=== PATIENT | male | born 1985 | race Caucasian/White ===

== ENCOUNTER 2021-10-31 14:03 | Outpatient (REF) | payer OTHER, SELFPAY ==
[2021-10-31 14:59] LABS: MANUAL DIFF FLAG NO
[2021-10-31 15:11] LABS: Basophils Percent Auto 0.3 % (0-2); Eosinophils Absolute Auto 0.2 X10*3/uL (0.0-0.4); Eosinophils Percent Auto 2.2 % (0-4); Hematocrit 42.8 % (42.0-52.0); Imm Gran Abs Auto 0.02 X10*3/uL (0.00-0.03); Imm Gran Pct Auto 0.2 % (0.0-0.4); Lymphocytes Absolute Auto 1.7 X10*3/uL (1.2-4.9); Lymphocytes Percent Auto 18.4 % (20-40); Mean Corpuscular HGB Conc 32.7 g/dl (31.0-36.0); Mean Corpuscular Hemoglobin 29.1 pg (27.0-33.0); Mean Platelet Volume 9.2 fL (9.4-12.4); Monocytes Absolute Auto 0.7 X10*3/uL (0.1-1.2); Monocytes Percent Auto 7.7 % (2-11); Neutrophils Absolute Auto 6.7 x10*3/uL (2.0-8.3); Neutrophils Percent Auto 71.2 % (45-73); Platelet Count 302 X10*3/uL (160-400); Red Blood Count 4.81 X10*6/uL (4.60-5.80); White Blood Count 9.4 X10*3/uL (4.8-10.8)
[2021-10-31 15:38] LABS: Alanine Aminotransferase 18 U/L (0-40); Albumin Level 4.5 g/dL (3.5-5.0); Alkaline Phosphatase 71 U/L (39-117); Anion Gap 15 (12-20); Aspartate Amino Transferase 16 U/L (5-37); Bilirubin Total 0.6 mg/dL (0.0-1.0); Blood Urea Nitrogen 10 mg/dL (9-16); Calcium 9.9 mg/dL (8.4-10.2); Carbon Dioxide 27 mmol/L (22-29); Chloride 103 mmol/L (96-108); Estimated Glomerular Filt Rate > 60; Glucose Random 88 mg/dL (60-115); Potassium 4.8 mmol/L (3.3-5.1); Sodium 140 mmol/L (135-145); Total Protein 7.6 g/dL (6.5-8.0)
[2021-10-31 16:14] LABS: Erythrocyte Sedimentation Rate 6 MM/HR (0-15)
[2021-11-02 15:11] LABS: TS Negative Control Passed; TS Panel A 0; TS Panel B 0; TS Positive Control Passed; TSpotTB Negative (Negative)
[2021-11-03 04:30] LABS: HBc Num1 0.15 S/CO (0.00-0.79); HBsAGNum1 0.26 S/CO (0.00-0.99); HIV AB/AG Nonreactive (Nonreactive); HIV Num 1 0.08 S/CO (0.00-0.99); Hepatitis B Core Antibody Nonreactive (Nonreactive); Hepatitis B Surface Antigen Negative (Negative)
[2021-11-03 04:35] LABS: ~HepC Num1 0.11 S/CO (0.00-0.79); ~Hepatitis C Antibody Nonreactive (Nonreactive)
[2021-11-03 16:56] LABS: Anti Nuclear Antibody Screen NEGATIVE (NEGATIVE)
== END 2021-10-31 14:04 | disposition home or self-care (01) ==
LOC: HO.HMGCLDS 14:03
PROVIDERS: Visit Provider Nurse Practitioner Family
DX: Z01.84 Encounter for antibody response examination (principal); Z11.4 Encounter for screening for human immunodeficiency virus [HIV]; Z79.899 Other long term (current) drug therapy
CPT/HCPCS: 36415; 80053; 85025; 85652; 86038; 86039; 86481; 86704; 86803; 87340; 87389

== ENCOUNTER 2022-12-09 10:22 | Outpatient (REF) | payer OTHER, SELFPAY ==
[2022-12-09 11:29] LABS: MANUAL DIFF FLAG NO
[2022-12-09 11:57] LABS: Basophils Percent Auto 0.6 % (0-2); Eosinophils Absolute Auto 0.3 X10*3/uL (0.0-0.4); Eosinophils Percent Auto 4.8 % (0-4); Hematocrit 43.6 % (42.0-52.0); Hemoglobin 14.5 g/dl (14.0-18.0); Imm Gran Abs Auto 0.01 X10*3/uL (0.00-0.03); Imm Gran Pct Auto 0.2 % (0.0-0.4); Lymphocytes Absolute Auto 1.9 X10*3/uL (1.2-4.9); Lymphocytes Percent Auto 30.7 % (20-40); Mean Corpuscular HGB Conc 33.3 g/dl (31.0-36.0); Mean Corpuscular Hemoglobin 30.1 pg (27.0-33.0); Mean Corpuscular Volume 90.5 fL (80.0-98.0); Mean Platelet Volume 10.2 fL (9.4-12.4); Monocytes Absolute Auto 0.5 X10*3/uL (0.1-1.2); Monocytes Percent Auto 8.2 % (2-11); Neutrophils Absolute Auto 3.5 x10*3/uL (2.0-8.3); Neutrophils Percent Auto 55.5 % (45-73); Platelet Count 259 X10*3/uL (160-400); Red Blood Count 4.82 X10*6/uL (4.60-5.80); Red Cell Distribution Width 12.4 % (11.0-16.0); White Blood Count 6.2 X10*3/uL (4.8-10.8)
[2022-12-09 13:24] LABS: Alanine Aminotransferase 34 U/L (0-40); Albumin Level 4.6 g/dL (3.5-5.0); Alkaline Phosphatase 61 U/L (39-117); Anion Gap 14 (12-20); Aspartate Amino Transferase 26 U/L (5-37); Bilirubin Total 0.6 mg/dL (0.0-1.0); Blood Urea Nitrogen 12 mg/dL (9-16); Calcium 9.2 mg/dL (8.4-10.2); Carbon Dioxide 28 mmol/L (22-29); Chloride 104 mmol/L (96-108); Estimated Glomerular Filt Rate > 60; Glucose Random 87 mg/dL (60-115); Potassium 4.7 mmol/L (3.3-5.1); Sodium 141 mmol/L (135-145)
[2022-12-09 13:47] LABS: Total Protein 7.5 g/dL (6.5-8.0)
[2022-12-12 05:29] LABS: TS Negative Control Passed; TS Panel A 2; TS Panel B 0; TS Positive Control Passed; TSpotTB Negative (Negative)
== END 2022-12-09 10:23 | disposition home or self-care (01) ==
LOC: HO.HMGCLDS 10:22
PROVIDERS: PCP Nurse Practitioner Family; Visit Provider Nurse Practitioner Family
DX: L40.0 Psoriasis vulgaris (principal)
CPT/HCPCS: 36415; 80053; 85025; 86481

== ENCOUNTER 2024-05-08 08:16 | Outpatient (REF) | payer OTHER, SELFPAY ==
[2024-05-08 10:19] LABS: MANUAL DIFF FLAG NO
[2024-05-08 10:32] LABS: Basophils Percent Auto 0.5 % (0-2); Eosinophils Absolute Auto 0.2 X10*3/uL (0.0-0.4); Eosinophils Percent Auto 3.6 % (0-4); Hematocrit 45.1 % (42.0-52.0); Hemoglobin 15.4 g/dl (14.0-18.0); Imm Gran Abs Auto 0.01 X10*3/uL (0.00-0.03); Imm Gran Pct Auto 0.2 % (0.0-0.4); Lymphocytes Percent Auto 35.7 % (20-40); Mean Corpuscular HGB Conc 34.1 g/dl (31.0-36.0); Mean Corpuscular Volume 90.7 fL (80.0-98.0); Mean Platelet Volume 10.3 fL (9.4-12.4); Monocytes Absolute Auto 0.5 X10*3/uL (0.1-1.2); Monocytes Percent Auto 8.2 % (2-11); Neutrophils Absolute Auto 2.9 x10*3/uL (2.0-8.3); Neutrophils Percent Auto 51.8 % (45-73); Platelet Count 239 X10*3/uL (160-400); Red Blood Count 4.97 X10*6/uL (4.60-5.80); Red Cell Distribution Width 12.3 % (11.0-16.0); White Blood Count 5.6 X10*3/uL (4.8-10.8)
[2024-05-08 10:47] LABS: Alanine Aminotransferase 36 U/L (0-40); Albumin Level 4.6 g/dL (3.5-5.0); Alkaline Phosphatase 53 U/L (39-117); Anion Gap 16 (12-20); Aspartate Amino Transferase 25 U/L (5-37); Bilirubin Total 0.5 mg/dL (0.0-1.0); Blood Urea Nitrogen 13 mg/dL (9-16); Calcium 9.7 mg/dL (8.4-10.2); Carbon Dioxide 27 mmol/L (22-29); Chloride 103 mmol/L (96-108); Estimated Glomerular Filt Rate > 60; Glucose Random 90 mg/dL (60-115); Potassium 4.5 mmol/L (3.3-5.1); Sodium 141 mmol/L (135-145); Total Protein 7.5 g/dL (6.5-8.0)
[2024-05-10 23:49] LABS: TS Negative Control Passed; TS Panel A 0; TS Panel B 2; TS Positive Control Passed; TSpotTB Negative (Negative)
== END 2024-05-08 08:17 | disposition home or self-care (01) ==
LOC: HO.HMGCLDS 08:16
PROVIDERS: PCP Nurse Practitioner Family; Visit Provider Nurse Practitioner Family
DX: L40.0 Psoriasis vulgaris (principal)
CPT/HCPCS: 36415; 80053; 85025; 86481

== ENCOUNTER 2025-10-11 14:49 | Outpatient (REF) | payer OTHER, SELFPAY ==
[2025-10-11 16:19] LABS: MANUAL DIFF FLAG NO
[2025-10-11 16:25] LABS: Hematocrit 43.0 % (42.0-52.0); Hemoglobin 14.8 g/dl (14.0-18.0); Imm Gran Abs Auto 0.00 X10*3/uL (0.00-0.03); Imm Gran Pct Auto 0.0 % (0.0-0.4); Lymphocytes Absolute Auto 1.6 X10*3/uL (1.2-4.9); Mean Corpuscular HGB Conc 34.4 g/dl (31.0-36.0); Mean Corpuscular Hemoglobin 30.8 pg (27.0-33.0); Mean Corpuscular Volume 89.6 fL (80.0-98.0); NRBC Abs Auto 0.000 X10*3/uL (0.0-0.012); NRBC Pct Auto 0.0 /100WBC (0.0-0.2); Platelet Count 219 X10*3/uL (160-400); Red Blood Count 4.80 X10*6/uL (4.60-5.80); White Blood Count 4.7 X10*3/uL (4.8-10.8)
[2025-10-11 16:47] LABS: Alanine Aminotransferase 63 U/L (0-40); Albumin Level 4.7 g/dL (3.5-5.0); Alkaline Phosphatase 64 U/L (39-117); Anion Gap 12 (12-20); Aspartate Amino Transferase 46 U/L (5-37); Blood Urea Nitrogen 17 mg/dL (9-16); Calcium 9.0 mg/dL (8.4-10.2); Carbon Dioxide 26 mmol/L (22-29); Chloride 107 mmol/L (96-108); Estimated Glomerular Filt Rate > 60; Potassium 4.2 mmol/L (3.3-5.1); Sodium 141 mmol/L (135-145); Total Protein 7.3 g/dL (6.5-8.0)
--- OUTSIDE RECORDS SUMMARY | 2025-10-11 18:05 | XMS_ITS | Clinical Summary ---
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 3 Active therapeutic multivitamin tablet Take 1 tablet by mouth daily. Active Immunizations Immunization Administration Dates Next Due DTP 03/29/1993, 9,02/28/1988,1987,1987 Hepatitis B 02/18/2001,08/20/2000,07/20/2000 Hib,HbOC 04/29/1989 MMR 07/30/1998,12/30/1988 Polio - OPV 03/29/1993, 9,01/28/1988,1986 Td (adult),2 Lf Tetanus Toxo id, PF, Adsorbed 07/20/2000 Tdap 01/09/2022 Social History Tobacco Use Types Packs/Day Years Used Date Smoking Tobacco: Never Smokeless Tobacco: Never Tobacco Cessation:Counseling Given: Not Answered Education Answer Date Recorded Are you interested in more education? Not on deirdre e 03/27/2023 Are you concerned about learning? Not on file 03/27/2023 No 03/27/2023 No 03/27/2023 Digital Access Answer Date Recorded No 04/25/2023 No 04/25/2023 No 04/25/2023 Reliable internet access at home? Not on file 04/25/2023 Device with a working camera? Not on file Sex and Gender Information Value Date Recorded Sex Assigned at Not on file Legal Sex Male 5:11 PM EST Gender Identity Not on file Sexual Orientation Not on file Last Filed Vital Signs Vital Sign Reading Time Taken Comments Blood Pressure 130/90 01/19/2023 8:03 AM EST Pulse 98 01/19/2023 8:03 AM EST Temperature 36.6 C (97.8 F) 01/19/2023 8:03 AM EST Respiratory Rate - - Oxygen Saturation 95% 01/19/2023 8:03 AM EST Inhaled Oxygen Concentration - - Weight 95.7 kg (211 lb) 01/19/2023 8:03 AM EST Height 175.3 cm (5' 9 ) 01/19/2023 8:03 AM EST Body Mass Index 31.16 01/19/2023 8:03 AM EST Plan of Treatment Health Maintenance Due Date Last Done Comments LIPID PANEL 1987 DEPRESSION SCREENING 1999 HEPATITIS C SCREENING 2005 HIV ONE-TIME SCREENING (18-65 YEARS) 2005 SCREENING FOR DIABETES 2022 INFLUENZA VACCINE (#1) 2025 COVID-19 VACCINE ( season) 2025 Adult Td,Tdap Booster 01/09/2032 01/09/2022, 000 HIB VACCINES Completed 04/29/1989 IPV VACCINES Completed 03/29/1993, 0611/1988, 01/28/1988, Additional history exists SMOKING STATUS SCREENING (Once After 26 Yrs) Completed 01/19/2023 HEPATITIS A VACCINES Aged Out No long er eligible based on patient's age to complete this topic MENINGOCOCCAL VACCINES (ACWY) Aged Out No longer eligible based on patient's age to complete this topic MENINGOCOCCAL VACCINES (B) Aged Out N o longer eligible based on patient's age to complete this topic PNEUMOCOCCAL VACCINES (0-49 years) Aged Out No longer eligible based on patient's age to complete this topic Medical Devices Not on file [place] [address] [address] CHOICE PLUS [facility] CHOICE PLUS [place] [employer] CHOICE PLUS [place] [employer] CHOICE PLUS Member Subscriber Plan / Payer (Ef fective 2022-Present) Name:Bernard Meza Relation to Subscriber:Self Name:Bernard Meza Payer ID:[id number] (NAIC) Type:PPO Address: [place] [id number] [place] [employer] CHOICE PLUS [place] [employer] CHOICE PLUS 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 It is not the complete legal health record.[facility]
--- OUTSIDE RECORDS SUMMARY | 2025-10-11 18:05 | XMS_ITS | Data Portability ---
Author Organization [place] - [facility], [facility] Address [address] [place] [address] Care Team Providers Care Intermediate Designer Name Role Phone BARRERA ARAUJO Primary Care Provider [phone] Assessment No assessment recorded. Plan of Treatment Reminders Order Date Submit Date Provider Last Modified By Organization Details Last Modified Time Details Appointments None recorded. Lab None recorded. Referral physical therapist referral - right lateral epicondylit is 2023 024 [email or web address] [id number] Not available 4 11:23:17 Procedures nerve conduction study/EMG, upper extremity (PROC) - right upper extremity pain eval CTS 2023 024 [email or web address] [facility] Scheduling, [address] [place], [address], 4 16:44:03 Surgeries None recorded. Imaging XR, lumbar spine, 2 view - 305 2V LUMBAR SPINE 2024 025 [email or web address] [facility], [address], [address], [place], [address], 5 12:08:52 MRI, lumbar spine, w/o contrast - L-SPINE MRI - EVAL STENOSIS 2024 025 [facility]), [address], [place], [address], 5 16:47:19 XR, elbow, 3 or more view - room 102 3v elbow 2023 024 [email or web address] [facility], [address], [address], [place], [address], 4 16:44:03 MRI, elbow, w/o contrast - right elbow pain -- eval joint and tendon 2023 024 HAR[facility], [address], [address], [place], [address], 4 09:53:38 Medication Orders meloxicam 15 mg tablet 2024 025 [id number], [address] [facility] [place], [address], 5 14:40:13 Patient TargetsNo targets recorded. Patient InstructionsNo instructions recorded. Reason for Referral Physical Therapist Referral for Right lateral elbow tendinopathy right lateral epicondylitis Referring Physician: Kathy Becerra, Orthopedic Surgery, [id number] Encounter Date: 10/31/2024 Results Created Date Observation Date Name Description Value Unit Range Abnormal Flag Note LastModifiedBy Organization Detail LastModifiedTime 09/27/2009/27/2024 XR, elbow , 3 or more view [email or web address]:/ [email or web address] ?Encry pted=s hAaTro YD8dLq bEUv6g %2BXZw aYqtaq 0bqfl% 2Fg9IQ a4ajBk vP9nXo QUaueC m3YtLR FvZlgJ JJ8mAn HZtai3 3o0859 AC0Kqa H6HUaS vKiQtr MwF INTERFACE [facility] [address], [place], [address], 09/27/2024 09:08:32 09/27/20 24 09/27/2024 XR, elbow , 3 or more view http:/ [email or web address] ?Encry pted=s hAaTro YD8dLq bEUv6g %2BXZw aYqtaq 0bqfl% 2Fg9IQ a4ajBk vP9nXo QUaueC m3YtLR FvZl[address] HZtai3 8s4400 AC0Kqa H6HUaS vKiQtr MwF INTERFACE [facility] Office [address] [facility] [address], [place], [address], 09/27/2024 09:08:34 10/22/20 24 10/21/2024 MRI, elbow , w/o contr ast No observ ation record ed. [email or web address] [facility] [address] [facility] [address], [place], [address], 10/25/2024 08:50:40 10/22/2010/21/2024 MRI, elbow , w/o contr ast No observ ation record ed. HARMONY [facility] [address] [facility] [address], [place], [address], 10/25/2024 08:50:36 06/25/2006/25/2025 XR, lumba r spine , 2 view http:/ [email or web address] ?Encry pted=s hAaTro YD8dLq bEUv6g %2BXZw aYqtaq 0bqfl% 2Fg9IQ a4ajBk vP9nXo QUaueC m3YtLR FvZlgJ JJ8Mehoopany HZtai3 0i8051 AC0Klb n%2BAW aegKiQ trMwF INTERFACE [facility] [address] [facility] [address], [place], [address], 06/25/2025 08:59:03 06/25/20 25 06/25/2025 XR, lumba r spine , 2 view http:/ [email or web address] ?Encry pted=s hAaTro YD8dLq bEUv6g %2BXZw aYqtaq 0bqfl% 2Fg9IQ a4ajBk vP9nXo QUaueC m3YtLR FvZl JJ8Mehoopany HZtai3 8k8226 AC0Klb n%2BAW aegKiQ trMwF INTERFACE [facility] Office [address] [facility] [address], [place], [address], 06/25/2025 08:59:04 07/02/20 25 06/28/2025 MRI, lumba r spine , w/o contr ast [facility] Access ion Number : [id number] Patien t Name: Bernard Carnes Record Number : [id number] Date of : 1984 Date of Exam: 2024 Referr ing Physic carlito: [facility] [address] [facility] , [address] [place] [address] Exam: MR Lumbar Spine (C-) CPT 62742 Room Descri ption: Rosamond GE Pion 3T MR Lumbar Spine (C-) CPT 44654 INDICA TION: Low back pain, unspec ified, , L-SPIN E MRI - EVAL STENOS IS TECHNI QUE: Multip lanar, multis equenc e MRI of the lumbar spine was perfor med withou t intrav enous contra st. COMPAR JUSTIN: None. FINDIN GS: NUMBER ING: The study assume s 5 non-ri b-bear ing lumbar type verteb ral bodies . ALIGNM ENT, VERTEB ALVARO, MARROW , AND DISCS: Alignm ent is normal . Verteb ral body height s are preser lalit. Modic 2 endpla te change s are presen t at L5-S1. Mild Modic 1 endpla te change s are in the anteri or superi or endpla te of L5. No suspic ious marrow lesion s are seen. Severa l small Schmor l's nodes are presen t. There is disc desicc ation and modera te loss of disc space at L5-S1, and mild loss of disc at T11-12 and T12-L1 . CONUS: The conus is normal in signal and contou r, with normal level of termin ation at L1-2. A fatty filum is visual ized below this level extend ing to the sacrum . PARASP INAL TISSUE S: The parasp inal soft tissue s are unrema rkable . DETAIL ED FINDIN GS BY LEVEL: T11-T1 2: Broad- based disc bulge with mild centra l stenos is, as assess ed in the sagitt al plane. Mild left and no signif icant right neural forami nal narrow ing. T12-L1 : Left parace ntral/ forami nal protru anshul with annula r fissur e. Mild left-s ided centra l stenos is. Mild left and no right neural forami nal narrow ing. L1-L2: No signif icant disc hernia tion, centra l stenos is, or neural forami nal narrow ing. L2-L3: No signif icant disc hernia tion, centra l stenos is, or neural forami nal narrow ing. L3-L4: Mild broad- based disc bulge with no signif icant centra l stenos is. Minima l right and no left neural forami nal narrow ing. L4-L5: No signif icant disc hernia tion, centra l stenos is, or neural forami nal narrow ing. L5-S1: Broad- based disc osteop hyte comple x with centra l protru anshul. Mild narrow ing of the subart icular recess es on each side. Otherw ise no signif icant centra l stenos is. Mild to modera te right and mild left neural forami nal narrow ing. IMPRES ANSHUL: Degene rative change s of the lumbar spine as detail ed above, greate st at L5-S1. Electr onical ly Signed By: Jv Portillo MD [address] [place] [address] [facility]) [address], [place], [address], 07/04/2025 13:45:00 Result Notes Documentation Provider Name and Address Organization Details Recorded Time Xr, Elbow, 3 Or More View : [email or web address]? Encrypted=alSlTopPC7nOepY Uv6g%8OCVdpPgvss0mecd%2Fg 5ZTk6uxTjeX0oGgLCwxvMt5Zn MCMnKypVLR6mFfOGpja55x815 1CO2SeeS5DDxHdEoAchXzA Not Available [facility] 09/27/2024 09:08:33 Xr, Elbow, 3 Or More View : [email or web address] Encrypted=ejAxObgUQ1pOcvO Uv6g%5BIZbjXjcat0qegx%2Fg 0BEi2niMxoR0pWyHSlhbSd0Iw FNIsGubGQQ6eEwKZxmx84r235 6ZL8DqkR0MDcShNyYjhSiF Not Available [facility] 09/27/2024 09:08:34 Xr, Lumbar Spine, 2 View : [email or web address] Encrypted=zrUeCfcAX4eRifU Uv6g%3PRPxfEnvms2rosa%2Fg 7DPl1otNxwD3kZaMSlczDm3Iw VFLaRqpOUJ9iXzNGpaw08c966 8PV4Lmna%2BAWaegKiQtrMwF Not Available [facility] 06/25/2025 08:59:03 Xr, Lumbar Spine, 2 View : [email or web address] Encrypted=xvErLmaXO8rXgrL Uv6g%2BPRwqEvroh5hsbh%2Fg 3JGj2lxDytP1fOzXHmtxBi2Uk JJLdQizJBF9qLpJRfqj39c888 9QO9Fnja%2BAWaegKiQtrMwF Not Available [facility] 06/25/2025 08:59:05 Mri, Lumbar Spine, W/o Contrast : [facility] Accession Number: [id number] Patient Name: Bernard Meza Date of : 1985 Date of Exam: 06-28-2025 Referring Physician: Jelena Stanford [facility] ([facility]) [address] [place] [address], [address] [place] [address] Exam: MR Lumbar Spine (C-) CPT 31925 Room Description: [facility] 3T MR Lumbar Spine (C-) CPT 04998 INDICATION: Low back pain, unspecified, , L-SPINE MRI - EVAL STENOSIS TECHNIQUE: Multiplanar, multisequence MRI of the lumbar spine was performed without intravenous contrast. COMPARISON: None. FINDINGS: NUMBERING: The study assumes 5 cwf-goy-hlfskjl lumbar type vertebral bodies. ALIGNMENT, VERTEBRAE, MARROW, AND DISCS: Alignment is normal. Vertebral body heights are preserved. Modic 2 endplate changes are present at L5-S1. Mild Modic 1 endplate changes are in the anterior superior endplate of L5. No suspicious marrow lesions are seen. Several small Schmorl's nodes are present. There is disc desiccation and moderate loss of disc space at L5-S1, and mild loss of disc at T11-12 and T12-L1. CONUS: The conus is normal in signal and contour, with normal level of termination at L1-2. A fatty filum is visualized below this level extending to the sacrum. PARASPINAL TISSUES: The paraspinal soft tissues are unremarkable. DETAILED FINDINGS BY LEVEL: T11-T12: Broad-based disc bulge with mild central stenosis, as assessed in the sagittal plane. Mild left and no significant right neural foraminal narrowing. T12-L1: Left paracentral/foraminal protrusion with annular fissure. Mild left-sided central stenosis. Mild left and no right neural foraminal narrowing. L1-L2: No significant disc herniation, central stenosis, or neural foraminal narrowing. L2-L3: No significant disc herniation, central stenosis, or neural foraminal narrowing. L3-L4: Mild broad-based disc bulge with no significant central stenosis. Minimal right and no left neural foraminal narrowing. L4-L5: No significant disc herniation, central stenosis, or neural foraminal narrowing. L5-S1: Broad-based disc osteophyte complex with central protrusion. Mild narrowing of the subarticular recesses on each side. Otherwise no significant central stenosis. Mild to moderate right and mild left neural foraminal narrowing. IMPRESSION: Degenerative changes of the lumbar spine as detailed above, greatest at L5-S1. Electronically Signed By: Tawny Stanford PA-C [address] [facility] [address] [facility], [place], [address], [facility] - [place] [facility] 07/04/2025 13:45:00 Problems Name Problem SNOMED Code Status Onset Date Resolution Date Notes Provider Name and Address Organization Details Recorded Time No complaints 793681201 Active Status : 'I'; Not Available [facility] 4 09:14:24 Low back pain 857292562 Active 2024 RYLIE BERNAL [facility] 5 08:52:30 Problem Notes None recorded. Procedures Surgical History Date Name Laterality Status Provider Name and Address Organization Details Recorded Time 3 Hand Surgery completed Lolis hernandez [facility] 10/31/2024 09:33:08 9 Hand Surgery completed Lolis hernandez [facility] 10/31/2024 09:33:08 Imaging Results None recorded. Procedure Notes None recorded. Medical Equipment None Reported. Allergies Allergen ID Allergen Name Allergen Category Reaction Reaction Severity Criticality Documentation Date Start Date Code Code System Note Provider Name and Address Organization Details Recorded Time 031404 ethinyl estradiol / levonorge strel medicatio n other moderate Not available 09/27/20241986 58006 8 RxNorm Brooklynn maria [facility] 4 08:53:03 Medications Name Sig Start Date Stop Date Status Note LastModified by Organization Details LastModified Time quetiapine 25 mg tablet TAKE 1 TABLET BY MOUTH EVERYDAY AT BEDTIME active Not Available Not Available No t Available meloxicam 15 mg tablet TAKE 1 TABLET EVERY DAY BY ORAL ROUTE AFTER MEAL(S). 2024 active Not Available Not Available Not Avai lable clobetasol 0.05 % topical cream APPLY TWICE DAILY TO PSORIASIS X2 WEEKS ON, 1 WEEK OFF, NEEDED. NOT FOR FACE OR BODY FOLDS. 06/25 completed Not Available Not Available Not Available quetiapine 100 mg tablet TAKE 1 TABLET BY MOUTH AT BEDTIME. active Not Available Not Available No t Available lamotrigine 25 mg tablet TAKE 2 TABLETS BY MOUTH EVERY MORNING active Not Available Not Available No t Available benzonatate 100 mg capsule TAKE 1 CAPSULE BY MOUTH THREE TIMES A DAY NEEDED FOR COUGH active Not Available Not Available No t Available fluoxetine 20 mg capsule TAKE 1 CAPSULE BY MOUTH EVERY MORNING. active Not Available Not Available No t Available fluticasone propionate 50 mcg/actuati on nasal spray,suspe nsion SPRAY 1 SPRAY INTO EACH NOSTRIL EVERY DAY 06/25 completed Not Available Not Available Not Available clobetasol propionate (bulk) 06/25 completed Not Available Not Available Not Available quetiapine 50 mg tablet TAKE 1 TABLET BY MOUTH EVERYDAY AT BEDTIME active Not Available Not Available No t Available Tremfya 100 mg/mL subcutaneou s auto-inject or Inject 100 mg every 2 months by sub-q route. 06/25 completed Not Available Not Available Not Available COVID-19 At-Home Test kit FOLLOW INSTRUCTI ONS INCLUDED WITH THE PACKAGE. 06/25 completed Not Available Not Available Not Available Vitals Date Recorded Body height Body mass index (BMI) Body weight Provider Name and Address Organization Details Last Updated DateTime 06/25/2025 175.26 cm 30.1 kg/m2 61102.84 g RYLIE BERNAL [facility] 06/25/2025 08:53:38 Date Recorded Body height Body mass index (BMI) Body weight Provider Name and Address Organization Details Last Updated DateTime 09/27/2024 175.26 cm 30.1 kg/m2 07665.84 g Brooklynn maria [facility] 09/27/2024 09:10:41 Date Recorded Body height Body mass index (BMI) Body weight Provider Name and Address Organization Details Last Updated DateTime 10/31/2024 175.26 cm 30.1 kg/m2 11473.84 g Lolis hernandez [facility] 10/31/2024 09:33:17 Social History Question Answer Notes LastModified by [employer] Details LastModified Time Tobacco Smoking Status [facility] 10/31/2024 09:33:08 What Is Your Relationship Status? Domestic Partner [email or web address] Information not available 10/31/2024 How Many Years Have You Smoked Tobacco? 0 Information not available 10/31/2024 Sex: Unknown Functional Status Question Answer Note LastModified by [employer] Details LastModified Time How many times per week do you consume alcohol? 3-4 times per week Information not available 10/31/2024 Do you use any illicit or recreational drugs? No [email or web address] Information not available 10/31/2024 Do you or have you ever used any other forms of tobacco or nicotine? No [email or web address] Information not available 10/31/2024 Do you or have you ever used e-cigarettes or vape? Never used electronic cigarettes [email or web address] Information not available 10/31/2024 Mental Status None recorded. Family History Nothing Reported. Medical History Condition Response Allergies/Hayfever Y Autoimmune disease Y Arthritis Y Past Encounters Encounter ID Performer Location Encounter Start Date Encounter Closed Date Diagnosis/Indication Diagnosis SNOMED-CT Code Diagnosis ICD10 Code Diagnosis IMO Codes Diagnosis Note [id number] Hortencia Curiel PA-C [facility] [address] [place] [address] 09/27/2024 08:41:17 10/19/2024 12:48:49 Pain of elbow region 13090188 M25.521 [id number] Kathy brown PA-C [facility] [address] [place] [address] 10/31/2024 09:24:30 11/16/2024 14:51:24 Right lateral elbow tendinopathy 9058806730 92170 M77.11 [id number] Traumatic arthropathy-elbow 709819777 M19.217 [id number] Jelena Stanford PA-C [facility] [address] [place] [address] 06/25/2025 08:48:58 06/29/2025 12:08:52 Low back pain 473675419 M54.50 46643 Health Concerns Section Related Observation LastModified by Organization Detai ls LastModified Time None Recorded Concern Status LastModified by Organization Details LastModified Time None Recorded Advance Directives Directive None Recorded Payers Insurance Date Sequence Insurance Name Policy Number Policy Lucia Covered Member ID Lucia Member ID Guarantor Name 08/17/2025 1 [facility] [id number] Bernard Meza [id number] Bernard Meza Notes Date Note Type Note Provider Name and Address Organization Details Recorded Time 09/27/2024 text/html I am seeing this patient under the supervision of Dr. Vicente who was available but who did not see the patient. HPI: Patient is a 38-year-old male presenting to the office today for evaluation of right elbow pain. Reports he dislocated his elbow 10 years ago. Reports it was a very bad injury and he had to go to physical therapy for a long time before he regained his motion. Reports since then he has had some pain in the elbow. Reports around 4-6 months ago he decided to go back to weight lifting, and things were going well but then he tried to carry a vacuum and felt a pop in his elbow. Reports he had pain and swelling in the elbow afterwards and some restriction in range of motion but this has since improved with compression sleeves, icing, and time. Reports he still gets soreness in the elbow. Also reports numbness and tingling in the ulnar aspect of the hand including the ring and small finger which is worse at night. denies feelings of elbow instability. He is here today for orthopedic consultation. Past family, medical, social history and review of systems has been reviewed, updated and is located in the patient's chart. Examination: The patient is well appearing and in no apparent distress. Alert and oriented x 3. Nonantalgic gait. Right elbow reveals minimal soft tissue swelling compared to the contralateral side. No tenderness about the elbow. No tenderness over medial and lateral epicondyles or olecranon. No evidence of varus/valgus instability. No evidence for effusion, no evidence of mechanical symptoms or locking. No pain with wrist flexion or extension or with forearm pronation or supination. Full ROM with the exception of very minimally decreased elbow extension compared to the contralateral side. 5/5 strength. Intact median, radial and ulnar nerve both motor and sensory function. Negative Tinel at the level of the elbow. Peripheral, vascular, lymphatic examination, skin, neurological, coordination, reflexes, sensation are within normal limits. X-rays ordered, obtained and reviewed independently today at [facility]: Three-view x-rays of the right elbow reveal some arthritic changes with some bone spurring. Rounded osteophytes noted around the lateral and medial epicondyles of the distal humerus. Impression: Right elbow pain, OA on x-rays, numbness/tingling worse at night, history of right elbow dislocation 10 years ago Plan: I discussed my findings and the situation with the patient. We discussed potential treatment options at this time. I recommended obtaining an MRI of the right elbow to further evaluate the extent of his arthritis as well as the soft tissue in the region including the tendons and ligaments. Patient will follow-up for MRI review. At that point we can discuss the role of PT and/or cortisone injection if needed. We have also ordered an EMG of the right upper extremity to further evaluate his numbness and tingling to evaluate for possible cubital tunnel syndrome versus carpal tunnel syndrome. He was offered an anti-inflammatory but states he does not feel that he needs it at this time. He also has elbow compression sleeves at home which he may utilize if he needs. Patient agrees with this plan. All questions were answered. Speech recognition rn clinical review software was used to create portions of this document. An attempt at proofreading has been made to minimize errors. Please call for corrections. Hortencia Curiel PA-C [address] [place] [address] [address], [place], [address], [facility] - [place] [facility] 09/27/2024 10:12:34 10/31/2024 text/html ROS as noted in the HPI I am seeing the patient today under the supervision of Dr. Crooks who was available but who did not see the patient.HPI: 39-year-old male presents for recheck regarding right elbow pain, here for MRI review today. He recently saw my colleague and had complaints in regards to right elbow pain and swelling as well as numbness and tingling in the ulnar aspect of the hand. He is awaiting an EMG to evaluate the numbness. He reports his elbow symptoms are mostly improved. He denies interval trauma.He has a pertinent history of remote trauma to the right elbow with a dislocation about 10 years ago, details well-documented in previous note.Past family, medical, social history and review of systems have been reviewed and updated on the medical history sheet saved to the patient's chart. Review of systems is negative except as noted above and/or on the medical history sheet.Examination: The patient is well appearing and in no apparent distress. Alert and oriented x3. Right elbow exam with range of motion 10-155 of flexion. Full forearm pronation and supination. Full wrist and digital range of motion. No tenderness to palpation throughout the medial elbow. Mild lateral epicondylar tenderness and tenderness over the common extensor tendon origin. No pain or weakness with resisted wrist extension 5/5. No pain or weakness with resisted wrist flexion. Negative Maudley's test. Neurovascularly intact. Full forearm wrist and digital range of motion. Peripheral vascular, lymphatic examination, skin, neurological, coordination, sensation are within normal limits unless otherwise noted above.MRI of the right elbow independently reviewed by me today demonstrates partial tearing of common extensor tendon consistent with lateral epicondylitis. Diffuse thickening consistent with sprain of lateral collateral ligament complex. Mild degenerative changes at Coronoid process with subchondral cystic change.Impression: A 39-year-old male with right elbow pain, mild posttraumatic arthritis, lateral epicondylitisPlan: Findings discussed with the patient at length. Explained that several of his MRI findings are consistent with the mild degenerative changes noted on his radiographs which suggest mild osteoarthritis of the right elbow. This is likely posttraumatic in nature due to his history of right elbow dislocation. We discussed avoidance of high impact and heavy weightlifting activities with the right arm to reduce likelihood of worsening arthritis. We also discussed treatment options for lateral epicondylitis including bracing, PT, cortisone injections, PRP injections, and surgery. He would like to go for physical therapy. He will consider his other options including injections. He will monitor his symptoms and follow-up as needed. Questions answered.[employer] speech recognition rn clinical review software was used to create portions of this document. An attempt at proofreading has been made to minimize errors. Please call for corrections. Kathy Becerra PA-C [address] [facility] [address] [facility], [place], [address], [facility] 11/01/2024 15:18:47 06/25/2025 text/html I am seeing the patient today under the supervision of Dr. Daley who was available but who did not see the patient. HPI: Patient presents for evaluation of ongoing low back pain. Patient reports right sided low back pain with radiating leg pain down to the foot. Denies paresthesias and weakness. Standing and walking worse than sitting. No clear etiology. Recalls an old injury in his teens. Worsening over time. Awakens him at night now. Rates pain moderate to severe. Denies bowel or bladder dysfunction. TREATMENTS: Bed rest, activity modification, home exercise core strengthening lumbar stabilization program over the past 3 months, and NSAIDs. Past family, medical, social history and review of systems has been reviewed, updated and signed by me and is located in the patient's chart. Examination: The patient is well appearing, alert and oriented x3 and in no acute distress. Gait is antalgic. Inspection of the spine reveals no step off, deformity or overlying skin changes. Range of motion of the lumbar spine is 60% of normal. Range of motion of the hip and knees full without discomfort. The spine is nontender over the paravertebral musculature. Nontender over the greater trochanters. Straight leg raise is positive on the affected side. Strength and sensation intact. Re e xes normal. No ankle clonus. X-rays ordered, obtained and reviewed at [facility], 2 views of the lumbar spine reveals no fractures, instability or bony lesions. Advanced degenerative disc disease/collapse at L5-S1 noted. Impression/Plan: Low back pain/Lumbar DDD/Lumbar radiculitis, right leg. Discussed the nature of the problem with the patient. Recommend MRI lumbar spine to evaluate for high-grade stenosis/nerve impingement and follow-up once complete. Prescribed Mobic 15 mg once a day as needed. Risks and benefits reviewed. Handout from [employer] low back for exercises provided today. Follow-up arranged. [facility] [employer] [facility] speech recognition rn clinical review software was used to create portions of this document. An attempt at proofreading has been made to minimize errors. Please call for corrections. Jelena Stanford PA-C [address], [place], [address], [facility] - [facility] 06/25/2025 10:54:20
--- OUTSIDE RECORDS SUMMARY | 2025-10-11 18:05 | XMS_ITS | Clinical Summary ---
Author Organization [facility] Address [address] [place] [address] Phone Care Team Providers Care Banquet Steward Name Role Phone Janina Kapoor Primary Care Provider [phone] Immunizations Immunization Administration Dates Next Due DTP 03/29/1993, 9,02/28/1988,1987,1987 Hep B, ped/adol 02/18/2001,08/20/2000,07/20/2000 Hib (HbOC) 04/29/1989 MMR 07/30/1998,12/30/1988 OPV 03/29/1993, 9,01/28/1988,1986 Td (adult) (MBL), 2 Lf tetan us toxoid, PF, adsorbed 07/20/2000 Family History Relation Name Status Comments Maternal Grandfather Alive Materna l grandfather: DC Mother Mother: allergi es Other Family history of Elevated cholesterol Paternal Grandmother Paterna l grandmother: Heart disease Sister Alive Sister: Alive a nd well Social History Tobacco Use Types Packs/Day Years Used Date Smoking Tobacco: Never Assessed Sex and Gender Information Value Date Recorded Sex Assigned at Not on file Legal Sex Male 4:11 PM EDT Gender Identity Not on file Sexual Orientation Not on file Plan of Treatment Health Maintenance Due Date Last Done Comments DTaP,Tdap,and Td Vaccines (5 - Tdap) 07/21/2000 07/20/2000, 03/29/1993, 04/29/1989, Additional history exists Varicella Vaccines (1 of 2 - 13+ 2-dose series) 2000 HPV Vaccines (1 - 3-dose SCDM series) 2014 Influenza Vaccines (#1) 2025 COVID-19 Vaccine ( season) 2025 HIB Vaccines Completed 04/29/1989 IPV Vaccines Completed 03/29/1993, 06/0 11/1988, 01/28/1988, Additional history exists MMR Vaccines Completed 07/30/1998, 12/30/1988 Hepatitis B Vaccines Completed 02/18/2001, 08/20/2000, 07/20/2000 Hepatitis A Vaccines Aged Out No long er eligible based on patient's age to complete this topic Men B Vaccine Aged Out No longer elig ible based on patient's age to complete this topic Meningococcal Vaccine Aged Out No ronaldo tan eligible based on patient's age to complete this topic Pneumococcal Vaccine Aged Out No long er eligible based on patient's age to complete this topic Care Teams Banquet Steward Relationship Specialty Start Date End Date Janina Kapoor [address] [place] [id number] PCP - General 07/09/17
--- OUTSIDE RECORDS SUMMARY | 2025-10-11 18:05 | XMS_ITS | Encounter Summary ---
Author Organization [facility] Address [address] [place] [id number] Phone Care Team Providers Care Finisher Hand Name Role Phone Janina Kapoor Primary Care Provider [phone] Encounter Details Date Type Department Care Team (Late st Contact Info) Description 07/15/[address] [facility] [address] [place] [address] Social History Tobacco Use Types Packs/Day Years Used Date Smoking Tobacco: Never Assessed Sex and Gender Information Value Date Recorded Sex Assigned at Not on file Legal Sex Male 4:11 PM EDT Gender Identity Not on file Sexual Orientation Not on file documented as of this encounter Plan of Treatment Not on file documented as of this encounter Visit Diagnoses Not on filedocumented in this encounter Care Teams Finisher Hand Relationship Specialty Start Date End Date Janina Kapoor [address] [facility] [address] [place] [address] PCP - General 07/09/17 documented as of this encounter
== END 2025-10-11 14:50 | disposition home or self-care (01) ==
LOC: HO.HMGCLDS 14:49
PROVIDERS: PCP Nurse Practitioner Family; Visit Provider Nurse Practitioner Family
DX: L40.0 Psoriasis vulgaris (principal)
CPT/HCPCS: 36415; 80053; 85025

== ENCOUNTER 2025-11-08 11:51 | Outpatient (REF) | payer OTHER, SELFPAY | END 2025-11-08 11:52 | LOC: HO.HMGCLDS 11:51 | PROVIDERS: Visit Provider Nurse Practitioner Family | DX: Z11.1 Encounter for screening for respiratory tuberculosis (principal); L40.0 Psoriasis vulgaris | CPT/HCPCS: 36415; 86481 ==